=== PATIENT | male | born 1995 | race Caucasian/White ===

== ENCOUNTER 2020-04-18 08:30 | Outpatient (RCR) | payer OTHER, SELFPAY ==
--- NOTE | 2020-04-10 07:57 | HP.OTEVAL_ITS ---
Patient's Visit Information OLIVERIO CRAFT is a 24 year old M, referred to Occupational Therapy by Ramírez Senior PA-C, with a diagnosis of left hand pain. Date of Evaluation: 04/04/20 Occupational Therapist: Loraine Stoner, OTR/Bernadine, CHT - Subjective This 24 year old male was seen for OT eval and dx of left hand pain - pt states in Nov. he was participating in a on line consuelo competition for about 2 hour. and noticed left thumb pain and discomfort, hand was swollen and would hurt with daily use. pt states he was placed in a brace in Nov. pt states his entire forearm would hurt. pt states he continues to have pain with use and would like to know what he can do to return to his PLOF. - Pain left hand 3 Pain Intensity Range: 0, 3 - ROM Wrist: Right 75/75 left 60/70 CMC: right 15 left 15 MP: right 65 left 70 IP: right 70 left 60 Radial Abduction: right 40 left 40 Opposition: right 10# left 10# ROM Comments: pt demo with poor thumb posture increasing stress on hand with use of IADls. 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 with ADLs and IADLs by d/c. pt will demo a increase in lateral/tripod pinch by 3# to increase pts ind. with ADls and IADLs by d.c Goal:: pt will report no pain greater than 1/10 with use of left UE with ADls and IADLs by d/c Goal:: Pt will demonstrate understanding of joint protection and adaptive equipment to decrease joint stress while performing ADL tasks by d/c Goal:: pt will demo the ability to open CMC to WNL and allow for MP to maintain proper alignment to decrease stress on UCL of MPJ. and to decrease pain with use of left hand with ADLs and IADLS by d/c. - Rehabilitation General Assessment: pt demo with poor thumb posturing- ( limited cmc ROM with hyper-ext of MP) pt has pain with increase use limiting his ind. with ADls and IADls. Pt would benefit from skilled OT services 2-4 visits to ed. pt on joint protection, thumb care, and stretches. Pt demo understanding and agree to POC. Rehabilitation Potential: Good - Anticipated Interventions A/AAROM/PROM, Modalities, Joint Protection/Energy Conservation, Ergonomic Education, Home Program - Visit Plan Frequency: Every Other Week Duration: 4 Weeks TEXT: Thank you for the opportunity to evaluate your patient. For Medicare and Medicare HMO plans, please review the plan of care and approve it. It will need to be FAXED BACK to us at [phone] for Medicare purposes. Please let me know if there are questions or concerns regarding this plan of care. Physician Signature: Date :
--- NOTE | 2020-06-06 13:55 | HP.OTDCSUM ---
It has been my pleasure to treat OLIVERIO CRAFT under orders from Ramírez Senior PA-C, for the diagnosis of left hand pain for a total of 3 visit(s). Please see the following information for a summary of their discharge status. % Improvement: 80 Objective/Function: left industrial manufacturing technician strength 105#. pt has returned to performing ADLs and IADLs at IND levels Patient Goals: Decrease Pain, Use Hand/Wrist/Arm Normally Again Goal:: pt will demo a increase in 10# left industrial manufacturing technician strength to increase pts ind. with ADLs and IADLs by d/c. pt will demo a increase in lateral/tripod pinch by 3# to increase pts ind. with ADls and IADLs by d.c Goal:: pt will report no pain greater than 1/10 with use of left UE with ADls and IADLs by d/c Goal:: Pt will demonstrate understanding of joint protection and adaptive equipment to decrease joint stress while performing ADL tasks by d/c Goal:: pt will demo the ability to open CMC to WNL and allow for MP to maintain proper alignment to decrease stress on UCL of MPJ. and to decrease pain with use of left hand with ADLs and IADLS by d/c. Plan: d/c If there are questions or concerns regarding this patient's occupational therapy, please fell free to call me at [phone]. Thank you for the referral of this patient. Sincerely, Loraine Stoner, OTR/L, CHT
== END 2020-04-18 19:00 | disposition home or self-care (01) ==
LOC: OT 08:30
PROVIDERS: PCP Family Medicine; Referring Provider Physician Assistant Surgical; Visit Provider Physician Assistant Surgical
DX: M79.645 Pain in left finger(s) (principal)
CPT/HCPCS: 97110; 97140; 97166

== ENCOUNTER 2023-10-06 10:48 | Emergency (ER) | payer OTHER, SELFPAY ==
[2023-10-06 10:48] VITALS: BP 167/153; PULSE 81; RESP 18; TEMP 35.8; O2SAT 100; BMI 22.1
--- NOTE | 2023-10-06 10:53 | EDS_ITS ---
HPI History of Present Illness Chief Complaint: Dizziness PFSH PFSH Allergy/AdvReac Type Severity Reaction Status Date / Time bee venom protein (honey Allergy Severe Anaphylaxis Verified 10/06/23 10:50 bee) (bees) Surgical History (Updated 10/06/23 @ 12:15 by Radha Royal) Hx of knee surgery Social History Smoking Status: Current some day smoker tobacco type: e-cigarettes EXAM Physical Exam Const Vital Signs: 10/06/23 10:48 10/06/23 12:48 Temperature 96.5 F L Temperature Source Temporal Pulse Rate 81 69 Respiratory Rate 18 18 Blood Pressure 167/153 H 112/77 Blood Pressure Mean 157 88 Pulse Ox 100 99 Oxygen Delivery Method Room Air MDM MDM MDM Narrative Medical decision making narrative: HISTORY OF PRESENT ILLNESS: 28-year-old male presents with lightheadedness and shortness of breath that began Wednesday. He notes 4 days of the symptoms. He further states he feels lightheaded upon standing. Notes he has felt slightly feverish but denies any documented fever or chills. Notes slight cough as well. Notes worsening shortness breath with exertion. Denies lower extremity edema. Denies palpitations. Denies headache. The patient denies recent surgery in the last 4 weeks or immobilization in the last 3 days, denies previous diagnosis of DVT or PE, hemoptysis, unilateral leg swelling or malignancy with treatment the last 6 months or palliative. No estrogen use noted. REVIEW OF SYSTEMS: Pertinent positives: Shortness of breath, lightheadedness Pertinent negatives: Headache, chest pain, abdominal pain, vomiting, excessive urination, diarrhea PHYSICAL EXAM: Nursing triage notes reviewed, Vital signs reviewed Constitutional: please see mdm HENT: MMM Eyes: Pupils equal round and reactive to light, Extraocular muscles intact Neck: No stridor, no JVD, full neck ROM Lungs: Clear to auscultation, No wheezing or rales. No increased work of breathing, no conversational dyspnea, no accessory muscle use, no nasal flaring. No respiratory distress noted Heart: Regular rate and rhythm, No murmurs, No rubs and No gallops, 2+ distal pulses (radial, femoral, posterior tibial) in all extremities Abdomen: Soft, there is no tenderness, rigidity, rebound or guarding, no obvious peritoneal signs, no palpable pulsatile abdominal masses, no auscultated abdominal bruit : No CVAT Extremities: No edema Neuro: No focal neurological deficits, cranial nerves II through XII intact, 5/5 strength in all extremities. Intact sensation to light touch in all extremities, 2+ reflexes bilateral patella tendons. Normal gait. No ataxia. Skin: No rash or lesions noted MEDICAL DECISION MAKING: Chief Complaint: Shortness of breath, lightheadedness External records reviewed: Imaging reviewed: Recent imaging studies noted in [facility] Factors affecting care: none reported Social determinants of health: Denies illicit drug use History obtained from others: Mother Consults: none [facility] Narrative: Patient was initially hypertensive with a blood pressure 167/153 I considered the following differential diagnosis: Pneumonia, posterior stroke or CVA, COVID, arrhythmia, dehydration, electrolyte disturbance, ACS, PE I obtained a broad lab and imaging workup to further elucidate the etiology of patient complaint. I gave the patient 1 L normal saline for initial resuscitation and treatment. ALL IMAGES (IF OBTAINED) HAVE BEEN PERSONALLY REVIEWED AND INTERPRETED BY MYSELF. EKG with normal sinus rhythm, normal axis, normal intervals, no STEMI High-sensitivity troponin is negative, no evidence of myocardial ischemia CBC without leukocytosis, severe anemia, no thrombocytopenia. BMP without evidence of significant electrolyte abnormalities, no anion gap, no acute kidney injury. I have personally reviewed the patient's chest x-ray. Chest x-ray is unremarkable for pulmonary edema, pneumothorax, pneumonia or focal cardiopulmonary abnormality. COVID flu RSV test is negative The synthesis of the patient's history, physical exam, labs images suggest no acute life-limiting etiology specifically no sign of posterior circulation CVA, arrhythmia, myocardial schema, significant dehydration, electrolyte disturbances, ACS. While considered pulm embolism as a potential etiology of the patient low risk well score and as such have a low suspicion for PE. I considered obtaining CT of the chest but thought this was not indicated given low risk Wells score and risk of radiation-induced malignancy. Discussed my clinical suspicion and impression with the patient and family. They agreed discharge was appropriate. Encourage patient to take in plenty of p.o. fluid. I suspect he may be some from a viral illness causing relative volume losses secondary to insensible losses. This should improve with time. Encourage PCP follow-up. The patient and/or family, caregivers express understanding. The patient and/or family, caregivers agrees with the plan. Shared decision making: I will have a discussion with the patient and or visitors regarding risk/benefits of further testing or admission. They will be made aware of of the risk/benefits inherent in this decision they will be given the opportunity to voice understanding. Total critical care time today provided was at least 0 []minutes. This excludes separately billable procedures. Critical care time (if documented) is secondary to the patient having high probability of clinically significant/life threatening deterioration in the patient's condition which required my urgent intervention. Impression: 1. Dyspnea 2. Lightheadedness Dispo: Discharge home This note was generated with [employer] dictation software. It may contain incorrect words, spelling, and punctuation that were not noted in review of the chart prior to signing. Lab Data Labs: Laboratory Results - last 24 hr 10/06/23 11:20 WBC 9.4 RBC 4.75 Hgb 14.9 Hct 40.8 MCV 85.9 MCH 31.4 MCHC 36.5 H RDW Std Deviation 33.9 L RDW Coeff of Jose 10.8 L Plt Count 287 MPV 8.4 Sodium 137 Potassium 3.7 Chloride 105 Carbon Dioxide 28.0 Anion Gap 4 L BUN 20 H Creatinine 0.98 Estim Creat Clear Calc 99.74 Est GFR (MDRD) Af Amer 118 Est GFR (MDRD) Non-Af 98 BUN/Creatinine Ratio 20.5 H Glucose 96 Calcium 8.9 Troponin I High Sens 6 Radiography Diagnostic Testing: Clinical Impression(s) from Imaging Studies Chest X-Ray 10/06/23 11:07 IMPRESSION: No radiographic evidence of acute cardiopulmonary disease. Electronically Signed: Nabor Tolliver MD at 12:01 EDT , Discharge Plan Triage Chief Complaint: Dizziness ED Provider: Bryce Garcia Dx/Rx/DC Orders Primary Care Provider: Care Physician,No Primary Referrals: Care Physician,No Primary [Primary Care Provider] - Print Language: Fijian
--- NOTE | 2023-10-06 11:07 | RAD_ITS ---
INDICATION: cough EXAMINATION/TECHNIQUE: X-RAY - XR Chest 2 Views COMPARISON: Prior study dated: 07/04/2009 FINDINGS: LINES/DEVICES: None. LUNGS: No consolidation, edema or effusion. No pneumothorax. MEDIASTINUM AND CARDIOVASCULAR STRUCTURES: Cardiac silhouette not enlarged. Central airways and mediastinal contour are unremarkable. BONES AND SOFT TISSUES: Unremarkable. RAD/Chest PA and Lateral IMPRESSION: No radiographic evidence of acute cardiopulmonary disease. Electronically Signed: Nabor Tolliver MD at 12:01 EDT ,
--- NOTE | 2023-10-06 11:12 | ED.RN ---
NO OLD EKGS
[2023-10-06 11:30] LABS: Hematocrit 40.8 % (40-54); Hemoglobin 14.9 g/dL (13.0-16.5); Mean Corp Hgb Conc 36.5 g/dL (32-36); Mean Corpuscular Hgb 31.4 pg (27.0-32.0); Mean Corpuscular Volume 85.9 fL (80-94); Mean Platelet Vol. 8.4 fl (6.2-12.0); Platelet Count 287 K/mm3 (150-450); RBC Distribution Width CV 10.8 % (11.6-14.6); RBC Distribution Width SD 33.9 fl (35.1-43.9); Red Blood Count 4.75 M/mm3 (4.6-6.2); White Blood Count 9.4 K/mm3 (4.4-11.0)
[2023-10-06 11:45] LABS: Anion Gap 4 (5-15); BUN 20 mg/dL (7-18); BUN/Creat Ratio 20.5 RATIO (10-20); Calcium,Total 8.9 mg/dL (8.5-10.1); Chloride 105 mmol/L (98-107); Creatinine, Serum 0.98 mg/dL (0.70-1.30); EST Glomerular Filtration Rate 98 mL/min (>60); Est Glom Filt Rate - Afr Amer 118 mL/min (>60); Estimated Creatinine Clearance 99.74 ml/min; Glucose 96 mg/dL (74-106); Potassium 3.7 mmol/L (3.5-5.1); Sodium Level 137 mmol/L (136-145); Troponin-I HS 6 pg/mL (3.0-78.0)
[2023-10-06] MEDS: 0.9% Normal Saline (1000mL) 1,000 ML 1000 ML IV (12:04)
[2023-10-06 12:48] VITALS: BP 112/77; PULSE 69; RESP 18; O2SAT 99
[2023-10-06 13:30] VITALS: BP 120/69; PULSE 77; RESP 17; TEMP 36.9; O2SAT 100
== END 2023-10-06 13:36 | disposition home or self-care (01) ==
PROVIDERS: Emergency Provider Emergency Medicine; Visit Provider Emergency Medicine
DX: R06.00 Dyspnea, unspecified (principal); R42 Dizziness and giddiness; F17.290 Nicotine dependence, other tobacco product, uncomplicated
CPT/HCPCS: 71046; 80048; 84484; 85027; 87631; 93005; 96360; 99284; J7030; A4216

== ENCOUNTER 2023-10-15 18:54 | Emergency (ER) | payer OTHER, SELFPAY ==
[2023-10-15 18:55] VITALS: BP 143/81; PULSE 120; RESP 18; TEMP 36.4; O2SAT 100; BMI 22.9
--- NOTE | 2023-10-15 19:33 | RAD_ITS ---
INDICATION: chest pain EXAMINATION/TECHNIQUE: X-RAY - XR Chest 1 View COMPARISON: 10/06/2023. FINDINGS: LINES/DEVICES: None. LUNGS: No consolidation, edema or effusion. No pneumothorax. MEDIASTINUM AND CARDIOVASCULAR STRUCTURES: Cardiac silhouette not enlarged. Central airways and mediastinal contour are unremarkable. BONES AND SOFT TISSUES: Unremarkable. RAD/Chest 1 View (Portable) IMPRESSION: No radiographic evidence of acute cardiopulmonary disease. Electronically Signed: Antoinette Bunn MD at 21:23 EDT Reading Location ID and State: [id number] / Tel , Service support ,
[2023-10-15 19:41] VITALS: O2SAT 100
[2023-10-15] MEDS: 0.9% Normal Saline (1000mL) 1,000 ML 999 ML IV (19:41)
[2023-10-15 19:48] LABS: Absolute Lymphocyte Count 3.58 X10^3/uL (0.83-4.51); Absolute Neutrophil Count 4.4 X10^3/uL (2.0-7.7); Basophil# 0.05 X10^3/uL; Basophil% 0.6 % (0-1); Eosinophil# 0.04 X10^3/uL; Eosinophils% 0.4 % (0-5); Hematocrit 35.4 % (40-54); Lymphocyte # 3.58 X10^3/ul (0.83-4.51); Lymphocyte % 39.4 % (19-41); Mean Corp Hgb Conc 36.7 g/dL (32-36); Mean Corpuscular Hgb 30.9 pg (27.0-32.0); Mean Corpuscular Volume 84.1 fL (80-94); Monocyte# 0.98 X10^3/uL; Monocyte% 10.8 % (0-10); NRBC Flagged by Analyzer 0 % (0-5); Neutrophil # 4.41 X10^3/uL (2.7-7.7); Neutrophil % 48.6 % (47-70); Platelet Count 314 K/mm3 (150-450); RBC Distribution Width CV 10.7 % (11.6-14.6); RBC Distribution Width SD 32.9 fl (35.1-43.9); Red Blood Count 4.21 M/mm3 (4.6-6.2); White Blood Count 9.1 K/mm3 (4.4-11.0)
[2023-10-15 20:06] VITALS: BP 109/51; PULSE 122; RESP 16; O2SAT 96
[2023-10-15 20:10] LABS: Anion Gap 12 (5-15); BUN 16 mg/dL (7-18); BUN/Creat Ratio 15.4 RATIO (10-20); Calcium,Total 8.8 mg/dL (8.5-10.1); Chloride 106 mmol/L (98-107); Creatinine, Serum 1.04 mg/dL (0.70-1.30); EST Glomerular Filtration Rate 91 mL/min (>60); Est Glom Filt Rate - Afr Amer 110 mL/min (>60); Estimated Creatinine Clearance 92.81 ml/min; Glucose 170 mg/dL (74-106); Potassium 2.7 mmol/L (3.5-5.1); Sodium Level 139 mmol/L (136-145); Troponin-I HS 4 pg/mL (3.0-78.0)
--- NOTE | 2023-10-15 20:43 | ED.RN ---
THIS RN INTO ROOM D/T SCREAMING FROM MOTHER. PATIENT IS HUGGING MOTHER AND SCREAMING I CAN'T LET GO OR I'M GOING TO PATIENT HYSTERICAL AND NOT REDIRECTABLE. SECURITY IN ROOM WELL SEVERAL OTHER ER STAFF. PT KICKING AND FLAILING ARMS AND LEGS. PATIENT RESTRAINED BY STAFF MEMBERS TO PREVENT HARM TO SELF AND OTHERS. PER DR. SOLOMON, 1MG OF ATIVAN GIVEN IV. PT NOW RESTING QUIETLY IN BED WITH SECURITY NEARBY. NO HARM TO PATIENT, FAMILY, OR STAFF.
--- NOTE | 2023-10-15 20:52 | CT_ITS ---
STUDY: CT BRAIN WITHOUT CONTRAST REASON FOR EXAM: Male, 28 years old. ams RADIATION DOSAGE (If Supplied By Facility): CTDIvol = ( 44.99 ) mGy, DLP = ( 779.24 ) mGycm TECHNIQUE: Transaxial CT imaging of the brain was performed without administration of intravenous contrast material. Individualized dose optimization techniques were used for this CT. COMPARISON: No relevant priors. FINDINGS: Normal soft tissue structures. Normal calvarium. Normal size ventricles and extra-axial spaces for the patient''s age. Normal white matter tracts of the cerebral hemispheres. Normal basal ganglia and thalami. Normal brainstem. Normal cerebellum. There is no intracranial hemorrhage. There are no findings of an acute ischemic infarction. Normal visualized paranasal sinuses. CT/Brain/Head without Contrast IMPRESSION: Normal unenhanced CT scan of the brain. Electronically Signed: Antoinette Bunn MD at 21:58 EDT Reading Location ID and State: [id number] / Tel , Service support ,
[2023-10-15 21:00] VITALS: BP 125/76; PULSE 96; RESP 18; O2SAT 99
[2023-10-15] MEDS: Potassium Phosphate 40 MM in 0.9% Normal Saline (500mL Bag) 500 ML 62.5 MM IV (21:38)
--- NOTE | 2023-10-15 21:41 | EDS_ITS ---
HPI History of Present Illness Chief Complaint: Palpitations Narrative Narrative: Patient is a 28-year-old with no known significant past medical history who presented to the emergency department with a chief complaint of generalized not feeling well and feeling his heart racing in his chest. According to the patient's mother at bedside she states that he had been ill for the past like 7 to 10 days and states that he was not feeling well prompting them to bring him here further evaluation management. Patient denies any other recent sick contacts denies any fevers. Patient states that he just does not feel right. PFSH PFSH Home Medications ?Medication ?Instructions ?Recorded ?Last Taken ?Type potassium chloride 20 mEq 20 meq PO BID 5 days #10 tabs 10/16/23 Unknown Rx tablet,extended release Allergy/AdvReac Type Severity Reaction Status Date / Time bee venom protein (honey Allergy Severe Anaphylaxis Verified 10/15/23 18:55 bee) (bees) Surgical History Hx of knee surgery Social History Smoking Status: Current some day smoker tobacco type: e-cigarettes ROS ROS ED ROS Narrative Constitutional: Denies headaches, Bradley, dizziness, fevers, chills Eyes: Denies change in vision double vision blurry vision Cardiovascular: Planes of palpitations denies any chest pain Respiratory: Denies coughing wheezing shortness of breath Abdomen: Denies abdominal pain nausea vomit diarrhea : Denies any urinary symptoms Neurological: Denies numbness, weakness, tingling Musculoskeletal: Denies back pain Skin: Denies rashes or lesions EXAM Physical Exam Narrative Exam Narrative: General: Patient was lying in bed rest comfortably did not appear to be in acute distress Head: Atraumatic, normocephalic Eyes: PERRL bilaterally, EOMI bilateral, no conjunctival injection noted Neck: Soft, supple, trachea midline Cardiovascular: Patient was tachycardic with a regular rhythm no murmurs gallops rubs noted Respiratory: Clear to auscultation bilaterally no rales rhonchi wheeze noted Abdomen: Soft, nondistended, nontender to palpation, bowel sounds present x 4 Extremities: +5/5 strength noted in the bilateral upper and lower extremities, no pedal edema on exam Neurological: Patient was following commands knew that he was at [facility] the year is 2023 Skin: Warm, dry, intact Const Vital Signs: 10/15/23 18:55 10/15/23 19:41 10/15/23 20:06 Temperature 97.6 F L Temperature Source Temporal Pulse Rate 120 H 122 H Respiratory Rate 18 16 Blood Pressure 143/81 H 109/51 L Blood Pressure Mean 101 70 Pulse Ox 100 100 96 Oxygen Delivery Method Room Air Room Air Room Air 10/15/23 21:00 10/15/23 22:00 10/15/23 23:00 Temperature Temperature Source Pulse Rate 96 83 77 Respiratory Rate 18 18 19 H Blood Pressure 125/76 H 101/61 94/56 L Blood Pressure Mean 92 74 68 Pulse Ox 99 100 100 Oxygen Delivery Method Room Air Room Air Room Air MDM MDM MDM Narrative Medical decision making narrative: Patient is a 28-year-old male who presented to the emerged part with chief complaint of generalized not feeling well and palpitations. Patient will have a workup performed here on the differential diagnose includes Melamin to panic attack, anxiety, pneumonia. Once workup is obtained reviewed he will be reevaluated. Shortly after the patient's arrival here he started to have a episode where he was yelling at his family and seem to be not acting his normal self. According to his mother she has never seen this happen before. I asked about drug use and mother states that he she is not aware of any drug use. I spoke with the patient's brother outside and notes that he did smoke some THC/dab earlier and notes that he several years ago he tried acid and notes that his brother seem to be screaming about this again is unsure if he is taking this. Patient was given Ativan 1 mg IV as he was not redirectable. Patient CBC reviewed and showed no evidence leukocytosis white blood count normal 9.1, he will in stable 13, platelet count normal at 314. Patient sodium normal at 139, patient was noted be hypokalemic at 2.7 he was given 40 mill equivalents orally and was ordered 40 mill equivalents intravenously. Patient's creatinine normal at 1.04. Patient troponin normal at 4, TSH normal at 1.35. Patient's drug screen tested positive for cannabis. Patient CT head and brain without contrast reviewed showed no acute intracranial processes. Patient's chest x-ray reviewed showed no acute cardiopulmonary processes. Patient's EKG was reviewed and showed sinus tachycardia with a rate of 115 bpm. On reevaluation the patient he feels back to his baseline he is unsure exactly what happened once again I encouraged about any other type of drug use which she denied besides dab pen. Patient was requesting for some resources for counseling which she was given here. He has an appointment on Wednesday with a primary care physician he was encouraged to keep this appointment follow-up with them at that point time. He will be sent potassium to his pharmacy for the next few days as well. He is encouraged to have a repeat potassium checked by his primary care physician. Patient denied any suicidal homicidal ideations. Patient would like to go home his family members at bedside are agreeable with this plan all question concerns answered he is discharged home in stable condition. Lab Data Labs: Laboratory Results - last 24 hr 10/15/23 10/15/23 19:13 20:59 WBC 9.1 RBC 4.21 L Hgb 13.0 Hct 35.4 L MCV 84.1 MCH 30.9 MCHC 36.7 H RDW Std Deviation 32.9 L RDW Coeff of Jose 10.7 L Plt Count 314 MPV 9.0 Immature Gran % (Auto) 0.200 Neut % (Auto) 48.6 Lymph % (Auto) 39.4 Travis % (Auto) 10.8 H Eos % (Auto) 0.4 Baso % (Auto) 0.6 Absolute Neuts (auto) 4.4 Absolute Lymphs (auto) 3.58 Nucleated RBC % 0 Sodium 139 Potassium 2.7 L* Chloride 106 Carbon Dioxide 21.0 Anion Gap 12 BUN 16 Creatinine 1.04 Estim Creat Clear Calc 92.81 Est GFR (MDRD) Af Amer 110 Est GFR (MDRD) Non-Af 91 BUN/Creatinine Ratio 15.4 Glucose 170 H Calcium 8.8 Troponin I High Sens 4 TSH 1.350 Urine Opiates Screen NEGATIVE Urine Methadone Screen NEGATIVE Ur Barbiturates Screen NEGATIVE Ur Phencyclidine Scrn NEGATIVE Ur Amphetamines Screen NEGATIVE MDMA (Ecstasy) Screen NEGATIVE U Benzodiazepines Scrn NEGATIVE Urine Cocaine Screen NEGATIVE U Cannabinoids Screen POSITIVE H Ur Drug Screen Comment Radiography Diagnostic Testing: Clinical Impression(s) from Imaging Studies Chest X-Ray 10/15/23 19:33 IMPRESSION: No radiographic evidence of acute cardiopulmonary disease. Electronically Signed: Antoinette Bunn MD at 21:23 EDT Reading Location ID and State: [id number] / Tel , Service support , Brain CT 10/15/23 20:52 IMPRESSION: Normal unenhanced CT scan of the brain. Electronically Signed: Antoinette Bunn MD at 21:58 EDT Reading Location ID and State: [id number] / Tel , Service support , Discharge Plan Triage Chief Complaint: Palpitations ED Provider: Brandon Bragg Dx/Rx/DC Orders Clinical Impression: Anxiety, Panic attack Instructions: Panic Disorder Prescriptions: New potassium chloride 20 mEq tablet extended release 20 meq PO BID 5 Days Qty: 10 0RF Primary Care Provider: Care Physician,No Primary Referrals: Care Physician,No Primary [Primary Care Provider] - Activity Restrictions/Additional Instructions: Follow-up with your primary care physician at your scheduled appointment on Wednesday. Have a repeat potassium check by this individual. 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 Return with worsening symptoms or any concerns. Print Language: Romansh Disposition Disposition: Home, Self Care
[2023-10-15 22:00] VITALS: BP 101/61; PULSE 83; RESP 18; O2SAT 100
[2023-10-15 22:03] LABS: Amphetamine Urine VISTA NEGATIVE (<1000 ng/mL); Barbiturate Urine VISTA NEGATIVE (< 200 ng/mL); Benzodiazepine Urine VISTA NEGATIVE (< 200 ng/mL); Cocaine Urine VISTA NEGATIVE (< 300 ng/mL); Ecstacy Urine VISTA NEGATIVE (< 500 ng/mL); Methadone Urine VISTA NEGATIVE (< 300 ng/mL); PCP Urine VISTA NEGATIVE (< 25 ng/mL); THC Urine VISTA POSITIVE (< 50 ng/mL); Vista UDS pH Range 5
[2023-10-15] MEDS: Potassium Chloride Oral Tablet 20 MEQ 40 MEQ PO (22:30)
[2023-10-15 23:00] VITALS: BP 94/56; PULSE 77; RESP 19; O2SAT 100
[2023-10-16 00:02] VITALS: BP 101/61; PULSE 97; RESP 18; TEMP 36.6; O2SAT 100
[2023-10-16] MEDS: Potassium Chloride Oral Tablet 20 MEQ 60 MEQ PO (00:04)
== END 2023-10-16 00:13 | disposition home or self-care (01) ==
PROVIDERS: Emergency Provider Emergency Medicine; Visit Provider Emergency Medicine
DX: F41.0 Panic disorder [episodic paroxysmal anxiety] (principal); F17.290 Nicotine dependence, other tobacco product, uncomplicated
CPT/HCPCS: 70450; 71045; 80048; 80307; 84443; 84484; 85025; 93005; 96365; 96366; 99284; J7030; J7040